=== PATIENT | female | born 1945 | race Caucasian/White ===

== ENCOUNTER 2021-11-12 09:26 | Emergency (ER) | payer OTHER, BC ==
[2021-11-12 09:38] VITALS: BP 173/69; PULSE 64; TEMP 97.2; BMI 19.7
== END 2021-11-12 10:30 | disposition home or self-care (01) ==
LOC: JERFT 09:26
DX: S43.402A Unspecified sprain of left shoulder joint, initial encounter (principal); X50.0XXA Overexertion from strenuous movement or load, initial encounter
CPT/HCPCS: 73030-TC-LT-FY; 99283-25

== ENCOUNTER 2022-03-26 09:47 | Observation (INO) | payer OTHER, BC ==
[2022-03-26 10:15] VITALS: BMI 19.7
[2022-03-26] MEDS ORDERED: ACETAMINOPHEN 1000 MG/100 ML BAG IVPB ONE (10:28)
[2022-03-26] MEDS ORDERED: ACETAMINOPHEN INJECTION 100 ML IVPB ONE (10:41)
[2022-03-26 11:17] LABS: EOS % 0.9 % (0-4.5); HEMATOCRIT 38.7 % (32.4-45.2); HEMOGLOBIN 13.3 GM/dL (10.7-15.3); LYMPH % 34.6 % (8-40); MCH 32.1 pg (25.7-33.7); MCHC 34.3 g/dl (32.0-36.0); MEAN CELL VOLUME 93.8 fl (80-96); MEAN PLT VOLUME 6.6 fl (7.5-11.1); MONO % 13.6 % (3.8-10.2); NEUT % 49.9 % (42.8-82.8); PLATELET COUNT 200 10^3/uL (134-434); RBC 4.13 M/mm3 (3.60-5.2); RDW 14.1 % (11.6-15.6); WHITE BLOOD COUNT 4.4 K/mm3 (4.0-10.0)
[2022-03-26 11:21] LABS: INR 1.03 (0.83-1.09); PROTHROMBIN TIME (PATIENT) 11.9 SEC (9.7-13.0)
[2022-03-26 11:24] LABS: ACTIVATED PTT 25.9 SECONDS (25.2-36.5)
[2022-03-26 11:31] LABS: ALBUMIN 3.5 g/dl (3.4-5.0); BLOOD UREA NITROGEN 22.8 mg/dL (7-18); CALCIUM 9.2 mg/dL (8.5-10.1)
[2022-03-26 11:34] LABS: CREATININE 0.7 mg/dL (0.55-1.3)
[2022-03-26 11:35] LABS: TOT PROT 6.6 g/dl (6.4-8.2)
[2022-03-26 11:36] LABS: BILIRUBIN,TOTAL 0.7 mg/dL (0.2-1)
[2022-03-26 11:39] LABS: N-TERMINAL BNP 188.3 pg/ml (5-450)
[2022-03-26 12:26] LABS: PH,URINE 5.5 (5.0-8.0); URINE APPEARANCE CLEAR; URINE BILIRUBIN NEGATIVE (NEGATIVE); URINE COLOR YELLOW; URINE GLUCOSE (UA) NEGATIVE (NEGATIVE); URINE KETONE NEGATIVE (NEGATIVE); URINE LEUK ESTERASE NEGATIVE (NEGATIVE); URINE NITRITE NEGATIVE (NEGATIVE); URINE PROTEIN NEGATIVE (NEGATIVE); URINE UROBILINOGEN 0.2 mg/dL (0.2-1.0)
[2022-03-26] MEDS ORDERED: VALSARTAN 80 MG TABLET PO ONE (14:06)
[2022-03-26] MEDS ORDERED: VALSARTAN 80 MG TABLET ONE (14:06)
[2022-03-26] MEDS ORDERED: LORazepam 2 MG/ML SDV VIAL IVPUSH ONE (16:46)
[2022-03-26] MEDS: HEPARIN NA (PORCINE) 5,000 UNITS/ML 1ML VIAL SQ SCH (22:19)
[2022-03-27] MEDS: HEPARIN NA (PORCINE) 5,000 UNITS/ML 1ML VIAL SQ SCH ×2 (10:16→21:35)
[2022-03-27] MEDS: VALSARTAN 80 MG TABLET PO SCH (10:16)
[2022-03-27] MEDS: clonazePAM 0.5 MG TABLET PO SCH (10:16)
[2022-03-27] MEDS: ROSUVASTATIN CA 10 MG TABLET PO SCH (10:16)
[2022-03-27] MEDS: ACETAMINOPHEN 325 MG TABLET (FP) PO PRN ×2 (10:55→19:01)
[2022-03-27] MEDS ORDERED: QUEtiapine FUMARATE 25 MG TABLET PO SCH (22:00)
[2022-03-27] MEDS ORDERED: clonazePAM 0.5 MG TABLET PO ONE (23:27)
[2022-03-28] MEDS: VALSARTAN 80 MG TABLET PO SCH (09:05)
[2022-03-28] MEDS: ROSUVASTATIN CA 10 MG TABLET PO SCH (09:05)
[2022-03-28] MEDS: clonazePAM 0.5 MG TABLET PO SCH (09:06)
[2022-03-28] MEDS: HEPARIN NA (PORCINE) 5,000 UNITS/ML 1ML VIAL SQ SCH ×2 (09:06→21:27)
[2022-03-28] MEDS ORDERED: QUEtiapine FUMARATE 25 MG TABLET PO PRN (13:19)
[2022-03-28] MEDS ORDERED: clonazePAM 0.5 MG TABLET PO SCH (21:00)
[2022-03-29] MEDS: VALSARTAN 80 MG TABLET PO SCH (09:57)
[2022-03-29] MEDS: ROSUVASTATIN CA 10 MG TABLET PO SCH (09:57)
[2022-03-29] MEDS: HEPARIN NA (PORCINE) 5,000 UNITS/ML 1ML VIAL SQ SCH ×3 (09:58→21:35)
[2022-03-29] MEDS ORDERED: QUEtiapine FUMARATE 25 MG TABLET PO PRN (15:01)
[2022-03-29] MEDS: ACETAMINOPHEN 325 MG TABLET (FP) PO PRN ×2 (16:48→22:33)
[2022-03-30] MEDS: clonazePAM 0.5 MG TABLET PO PRN ×2 (01:26→20:14)
[2022-03-30] MEDS: ACETAMINOPHEN 325 MG TABLET (FP) PO PRN ×3 (06:58→20:14)
[2022-03-30 07:08] VITALS: RESP 18
[2022-03-30] MEDS ORDERED: clonazePAM 0.5 MG TABLET PO SCH (10:00)
[2022-03-30] MEDS: ROSUVASTATIN CA 10 MG TABLET PO SCH (11:34)
[2022-03-30] MEDS: HEPARIN NA (PORCINE) 5,000 UNITS/ML 1ML VIAL SQ SCH ×3 (11:34→22:44)
[2022-03-30] MEDS: VALSARTAN 80 MG TABLET PO SCH (11:34)
[2022-03-30] MEDS: LIDOCAINE 5% TOPICAL PATCH TP SCH (12:23)
[2022-03-30] MEDS ORDERED: LIDOCAINE PATCH REMOVAL MC SCH (22:00)
[2022-03-31] MEDS: VALSARTAN 80 MG TABLET PO SCH (09:40)
[2022-03-31] MEDS: HEPARIN NA (PORCINE) 5,000 UNITS/ML 1ML VIAL SQ SCH (09:40)
[2022-03-31] MEDS: LIDOCAINE 5% TOPICAL PATCH TP SCH (09:40)
[2022-03-31] MEDS: ROSUVASTATIN CA 10 MG TABLET PO SCH (09:40)
[2022-03-31 10:15] VITALS: BP 160/80; PULSE 60; TEMP 98
== END 2022-03-31 11:05 | disposition home health service (06) ==
LOC: JER 09:47 → JERBED 13:51 → J4W 18:45 → J7W 03-29 13:45
PROVIDERS: ADMIT Internal Medicine; ATTEND Internal Medicine
PROC: 3E033NZ Introduction of Analgesics, Hypnotics, Sedatives into Peripheral Vein, Percutaneous Approach (ICD-10-PCS; principal; 2022-03-26)
DX: R55 Syncope and collapse (principal); R29.6 Repeated falls; I10 Essential (primary) hypertension; F03.90 Unspecified dementia, unspecified severity, without behavioral disturbance, psychotic disturbance, mood disturbance, and anxiety; E78.00 Pure hypercholesterolemia, unspecified; E78.5 Hyperlipidemia, unspecified; F41.9 Anxiety disorder, unspecified
CPT/HCPCS: 0241U-QW; 36415; 70450-TC; 71045-TC-FY; 71101-TC-RT-FY; 72125-TC; 72170-TC-FY; 80053; 81003; 82962; 83880; 84484; 85025; 85610; 85730; 86850; 86900; 86901; 87086; 93005; 93010; 93306-TC; 93880-TC; 96374; 96375; 97116-GP; 97163-GP; 99285-25; G0378; J1644

== ENCOUNTER 2022-04-02 11:12 | Observation (INO) | payer OTHER, BC ==
[2022-04-02 13:34] LABS: CALCIUM 9.2 mg/dL (8.5-10.1)
[2022-04-02 13:35] LABS: ALBUMIN 3.9 g/dl (3.4-5.0)
[2022-04-02 13:38] LABS: CREATININE 0.8 mg/dL (0.55-1.3)
[2022-04-02 13:39] LABS: BILIRUBIN,TOTAL 0.6 mg/dL (0.2-1); TOT PROT 7.2 g/dl (6.4-8.2)
[2022-04-02 13:41] LABS: BASO % 0.8 % (0-2.0); EOS % 0.6 % (0-4.5); HEMATOCRIT 40.5 % (32.4-45.2); HEMOGLOBIN 13.5 GM/dL (10.7-15.3); LYMPH % 29.3 % (8-40); MCHC 33.2 g/dl (32.0-36.0); MEAN CELL VOLUME 93.3 fl (80-96); MEAN PLT VOLUME 7.5 fl (7.5-11.1); MONO % 12.4 % (3.8-10.2); NEUT % 56.9 % (42.8-82.8); PLATELET COUNT 197 10^3/uL (134-434); RBC 4.34 M/mm3 (3.60-5.2); RDW 13.9 % (11.6-15.6); WHITE BLOOD COUNT 6.5 K/mm3 (4.0-10.0)
[2022-04-02] MEDS: ACETAMINOPHEN 325 MG TABLET (FP) PO PRN (18:20)
[2022-04-02] MEDS: LIDOCAINE PATCH REMOVAL MC SCH (21:13)
[2022-04-02] MEDS: HEPARIN NA (PORCINE) 5,000 UNITS/ML 1ML VIAL SQ SCH (21:13)
[2022-04-02] MEDS: clonazePAM 0.5 MG TABLET PO SCH (21:13)
[2022-04-03] MEDS: LIDOCAINE 5% TOPICAL PATCH TP SCH (10:26)
[2022-04-03] MEDS: ROSUVASTATIN CA 10 MG TABLET PO SCH ×2 (10:26→11:35)
[2022-04-03] MEDS: VALSARTAN 80 MG TABLET PO SCH ×2 (10:26→11:35)
[2022-04-03] MEDS: clonazePAM 0.5 MG TABLET PO SCH (10:26)
[2022-04-03] MEDS: HEPARIN NA (PORCINE) 5,000 UNITS/ML 1ML VIAL SQ SCH ×2 (10:26→21:44)
[2022-04-03] MEDS: clonazePAM 0.25 MG ODT TABLETS SL PRN (21:44)
[2022-04-03] MEDS: LIDOCAINE PATCH REMOVAL MC SCH (21:45)
[2022-04-04] MEDS: clonazePAM 0.25 MG ODT TABLETS SL PRN ×2 (10:31→21:36)
[2022-04-04] MEDS: LIDOCAINE 5% TOPICAL PATCH TP SCH (10:31)
[2022-04-04] MEDS: VALSARTAN 80 MG TABLET PO SCH (10:31)
[2022-04-04] MEDS: ROSUVASTATIN CA 10 MG TABLET PO SCH (10:31)
[2022-04-04] MEDS: HEPARIN NA (PORCINE) 5,000 UNITS/ML 1ML VIAL SQ SCH ×3 (10:42→21:14)
[2022-04-04 14:39] VITALS: BMI 18.7
[2022-04-04 17:58] LABS: EPI CELLS 7 /uL (0-25.1); HYALINE CASTS 0 /uL (0-3.1); URINE APPEARANCE CLOUDY; URINE BACTERIA 23 /uL (0-1359); URINE BILIRUBIN NEGATIVE (NEGATIVE); URINE COLOR DK YELLOW; URINE GLUCOSE (UA) NEGATIVE (NEGATIVE); URINE KETONE TRACE (NEGATIVE); URINE LEUK ESTERASE 1+ (NEGATIVE); URINE NITRITE NEGATIVE (NEGATIVE); URINE PROTEIN NEGATIVE (NEGATIVE); URINE RBC 5 /uL (0-23.9); URINE WBC 58 /uL (0-25.8)
[2022-04-04] MEDS: clonazePAM 0.25 MG ODT TABLETS SL SCH (20:09)
[2022-04-04] MEDS: LIDOCAINE PATCH REMOVAL MC SCH ×2 (20:10→21:14)
[2022-04-05] MEDS: HEPARIN NA (PORCINE) 5,000 UNITS/ML 1ML VIAL SQ SCH ×2 (09:43→21:26)
[2022-04-05] MEDS: ROSUVASTATIN CA 10 MG TABLET PO SCH (09:43)
[2022-04-05] MEDS: LIDOCAINE 5% TOPICAL PATCH TP SCH (09:43)
[2022-04-05] MEDS: VALSARTAN 80 MG TABLET PO SCH (09:43)
[2022-04-05] MEDS: ACETAMINOPHEN 325 MG TABLET (FP) PO PRN (11:21)
[2022-04-05] MEDS: clonazePAM 0.25 MG ODT TABLETS SL SCH (21:26)
[2022-04-05] MEDS: LIDOCAINE PATCH REMOVAL MC SCH (21:26)
[2022-04-06] MEDS: LIDOCAINE 5% TOPICAL PATCH TP SCH (12:02)
[2022-04-06] MEDS: VALSARTAN 80 MG TABLET PO SCH (12:03)
[2022-04-06] MEDS: HEPARIN NA (PORCINE) 5,000 UNITS/ML 1ML VIAL SQ SCH ×2 (12:03→21:02)
[2022-04-06] MEDS: ROSUVASTATIN CA 10 MG TABLET PO SCH (12:03)
[2022-04-06] MEDS: clonazePAM 0.25 MG ODT TABLETS SL SCH (20:46)
[2022-04-06] MEDS: LIDOCAINE PATCH REMOVAL MC SCH (21:15)
[2022-04-07 02:28] VITALS: RESP 18
[2022-04-07 04:48] VITALS: TEMP 97.8
[2022-04-07] MEDS: HEPARIN NA (PORCINE) 5,000 UNITS/ML 1ML VIAL SQ SCH ×2 (09:09→09:20)
[2022-04-07] MEDS: ROSUVASTATIN CA 10 MG TABLET PO SCH (09:09)
[2022-04-07] MEDS: VALSARTAN 80 MG TABLET PO SCH (09:09)
[2022-04-07] MEDS: LIDOCAINE 5% TOPICAL PATCH TP SCH (09:10)
[2022-04-07 11:09] VITALS: BP 140/73; PULSE 68
== END 2022-04-07 11:50 ==
LOC: JER 11:12 → JERBED 14:20 → INTOOBSV 14:20 → UNDOADMOB 14:20 → JERBED 16:39 → J6S 17:50
PROVIDERS: ADMIT Internal Medicine; ATTEND Internal Medicine
DX: F03.90 Unspecified dementia, unspecified severity, without behavioral disturbance, psychotic disturbance, mood disturbance, and anxiety (principal); R29.6 Repeated falls; E78.00 Pure hypercholesterolemia, unspecified; Z90.79 Acquired absence of other genital organ(s); I10 Essential (primary) hypertension; W18.39XA Other fall on same level, initial encounter; Y93.89 Activity, other specified; Y92.89 Other specified places as the place of occurrence of the external cause; Z88.0 Allergy status to penicillin
CPT/HCPCS: 36415; 70450-TC; 71045-TC-FY; 72125-TC; 80053; 81003; 84484; 85025; 87086; 87186; 93005; 93010; 97116-GP; 99285-25; C9803-CS; G0378; J1644; U0003; U0005

== ENCOUNTER 2022-12-29 19:43 | Inpatient (IN) | payer OTHER, BC ==
[2022-12-29 21:12] LABS: BASO % 0.5 % (0-2.0); EOS % 1.1 % (0-4.5); HEMATOCRIT 34.3 % (32.4-45.2); HEMOGLOBIN 11.4 GM/dL (10.7-15.3); LYMPH % 29.1 % (8-40); MCH 30.8 pg (25.7-33.7); MCHC 33.2 g/dl (32.0-36.0); MEAN CELL VOLUME 92.6 fl (80-96); MEAN PLT VOLUME 6.7 fl (7.5-11.1); MONO % 11.9 % (3.8-10.2); NEUT % 57.4 % (42.8-82.8); PLATELET COUNT 233 10^3/uL (134-434); RDW 13.5 % (11.6-15.6); WHITE BLOOD COUNT 7.2 K/mm3 (4.0-10.0)
[2022-12-29 21:24] LABS: INR 1.05 (0.83-1.09); PROTHROMBIN TIME (PATIENT) 12.2 SEC (9.7-13.0)
[2022-12-29 21:27] LABS: ACTIVATED PTT 25.1 SECONDS (25.2-36.5)
[2022-12-29 21:31] LABS: POTASSIUM 3.9 mmol/L (3.5-5.1)
[2022-12-29 21:32] LABS: CALCIUM 8.9 mg/dL (8.5-10.1)
[2022-12-29 21:33] LABS: ALBUMIN 3.3 g/dl (3.4-5.0); BLOOD UREA NITROGEN 29.2 mg/dL (7-18)
[2022-12-29] MEDS ORDERED: MIRTAZAPINE 15 MG TABLET (FP) PO ONE (21:33)
[2022-12-29] MEDS ORDERED: MIRTAZAPINE 15 MG TABLET (FP) ONE (21:34)
[2022-12-29 21:36] LABS: CREATININE 0.7 mg/dL (0.55-1.3)
[2022-12-29 21:38] LABS: TOT PROT 6.8 g/dl (6.4-8.2)
[2022-12-29 21:39] LABS: BILIRUBIN,TOTAL 0.7 mg/dL (0.2-1)
[2022-12-29] MEDS ORDERED: CITALOPRAM HYDROBROMIDE 10 MG TABLET PO ONE (22:00)
[2022-12-29] MEDS ORDERED: MELATONIN 5 MG TABLETS PO ONE (22:00)
[2022-12-29] MEDS ORDERED: CITALOPRAM HYDROBROMIDE 10 MG TABLET ONE (22:07)
[2022-12-29] MEDS ORDERED: MELATONIN 1 MG TABLET PO ONE (22:15)
[2022-12-29 22:47] LABS: PH,URINE 5.5 (5.0-8.0); URINE APPEARANCE CLEAR; URINE BILIRUBIN NEGATIVE (NEGATIVE); URINE COLOR YELLOW; URINE GLUCOSE (UA) NEGATIVE (NEGATIVE); URINE KETONE NEGATIVE (NEGATIVE); URINE LEUK ESTERASE NEGATIVE (NEGATIVE); URINE NITRITE NEGATIVE (NEGATIVE); URINE PROTEIN NEGATIVE (NEGATIVE); URINE UROBILINOGEN 0.2 mg/dL (0.2-1.0)
[2022-12-30] MEDS ORDERED: CITALOPRAM HYDROBROMIDE 10 MG TABLET ONE ×2 (09:24→19:52)
[2022-12-30] MEDS ORDERED: MIRTAZAPINE 15 MG TABLET (FP) ONE ×2 (09:24→19:52)
[2022-12-30] MEDS: MIRTAZAPINE 15 MG TABLET (FP) PO SCH (09:39)
[2022-12-30] MEDS: CITALOPRAM HYDROBROMIDE 10 MG TABLET PO SCH (09:39)
[2022-12-30] MEDS ORDERED: CITALOPRAM HYDROBROMIDE 10 MG TABLET PO ONE (19:01)
[2022-12-30] MEDS ORDERED: ACETAMINOPHEN 500 MG TABLET (FP) PO ONE (19:02)
[2022-12-30] MEDS ORDERED: MIRTAZAPINE 15 MG TABLET (FP) PO ONE (19:02)
[2022-12-30] MEDS ORDERED: ACETAMINOPHEN 325 MG TABLET (FP) ONE (19:52)
[2022-12-30] MEDS: ROSUVASTATIN CA 10 MG TABLET PO SCH (21:20)
[2022-12-30] MEDS: MELATONIN 1 MG TABLET PO PRN (21:20)
[2022-12-31] MEDS: MIRTAZAPINE 15 MG TABLET (FP) PO SCH (10:11)
[2022-12-31] MEDS: CITALOPRAM HYDROBROMIDE 10 MG TABLET PO SCH (10:11)
[2022-12-31] MEDS: ENOXAPARIN NA (PORCINE) 40 MG/0.4 ML DISP.SYRIN SQ SCH (10:11)
[2022-12-31] MEDS ORDERED: clonazePAM 0.5 MG TABLET PO PRN (12:16)
[2022-12-31] MEDS ORDERED: HALOPERIDOL LACTATE 5 MG/ML IM PRN (12:19)
[2022-12-31] MEDS: ROSUVASTATIN CA 10 MG TABLET PO SCH (23:50)
[2023-01-01] MEDS: MIRTAZAPINE 15 MG TABLET (FP) PO SCH (10:20)
[2023-01-01] MEDS: ENOXAPARIN NA (PORCINE) 40 MG/0.4 ML DISP.SYRIN SQ SCH (10:20)
[2023-01-01] MEDS: CITALOPRAM HYDROBROMIDE 10 MG TABLET PO SCH (10:20)
[2023-01-01] MEDS: LOSARTAN POTASSIUM 50 MG TABLET PO SCH (10:20)
[2023-01-01] MEDS ORDERED: ACETAMINOPHEN 500 MG TABLET (FP) PO PRN (15:22)
[2023-01-01] MEDS: MELATONIN 1 MG TABLET PO PRN (21:28)
[2023-01-01] MEDS: ROSUVASTATIN CA 10 MG TABLET PO SCH (21:28)
[2023-01-02] MEDS: ENOXAPARIN NA (PORCINE) 40 MG/0.4 ML DISP.SYRIN SQ SCH (10:11)
[2023-01-02] MEDS: MIRTAZAPINE 15 MG TABLET (FP) PO SCH (10:11)
[2023-01-02] MEDS: LOSARTAN POTASSIUM 50 MG TABLET PO SCH (10:11)
[2023-01-02] MEDS: CITALOPRAM HYDROBROMIDE 10 MG TABLET PO SCH (10:11)
[2023-01-02] MEDS: ROSUVASTATIN CA 10 MG TABLET PO SCH (21:26)
[2023-01-02] MEDS: MELATONIN 1 MG TABLET PO PRN (21:47)
[2023-01-03] MEDS: ENOXAPARIN NA (PORCINE) 40 MG/0.4 ML DISP.SYRIN SQ SCH (09:13)
[2023-01-03] MEDS: MIRTAZAPINE 15 MG TABLET (FP) PO SCH (09:14)
[2023-01-03] MEDS: LOSARTAN POTASSIUM 50 MG TABLET PO SCH (09:14)
[2023-01-03] MEDS: CITALOPRAM HYDROBROMIDE 10 MG TABLET PO SCH (09:14)
[2023-01-03] MEDS ORDERED: ACETAMINOPHEN 500 MG TABLET (FP) PO PRN (11:21)
[2023-01-03] MEDS ORDERED: clonazePAM 0.5 MG TABLET PO PRN (11:21)
[2023-01-03] MEDS ORDERED: HALOPERIDOL LACTATE 5 MG/ML IM PRN (11:21)
[2023-01-03] MEDS ORDERED: MELATONIN 1 MG TABLET PO PRN (11:21)
[2023-01-03] MEDS: POLYETHYLENE GLYCOL (HEALTHYLAX) 3350 17 GM PACKET PO SCH (15:55)
[2023-01-03] MEDS: ROSUVASTATIN CA 10 MG TABLET PO SCH (23:01)
[2023-01-04] MEDS: POLYETHYLENE GLYCOL (HEALTHYLAX) 3350 17 GM PACKET PO SCH (09:41)
[2023-01-04] MEDS: LOSARTAN POTASSIUM 50 MG TABLET PO SCH (09:41)
[2023-01-04] MEDS: CITALOPRAM HYDROBROMIDE 10 MG TABLET PO SCH (09:41)
[2023-01-04] MEDS: ENOXAPARIN NA (PORCINE) 40 MG/0.4 ML DISP.SYRIN SQ SCH (09:42)
[2023-01-04] MEDS: ROSUVASTATIN CA 10 MG TABLET PO SCH (22:05)
[2023-01-04] MEDS: MIRTAZAPINE 15 MG TABLET (FP) PO SCH (22:05)
[2023-01-05] MEDS: POLYETHYLENE GLYCOL (HEALTHYLAX) 3350 17 GM PACKET PO SCH (11:46)
[2023-01-05] MEDS: LOSARTAN POTASSIUM 50 MG TABLET PO SCH (11:46)
[2023-01-05] MEDS: ENOXAPARIN NA (PORCINE) 40 MG/0.4 ML DISP.SYRIN SQ SCH (11:46)
[2023-01-05] MEDS: CITALOPRAM HYDROBROMIDE 10 MG TABLET PO SCH (11:48)
[2023-01-05 13:28] VITALS: BMI 23.1
[2023-01-05] MEDS: MIRTAZAPINE 15 MG TABLET (FP) PO SCH (22:26)
[2023-01-05] MEDS: ROSUVASTATIN CA 10 MG TABLET PO SCH (22:26)
[2023-01-06] MEDS: CITALOPRAM HYDROBROMIDE 10 MG TABLET PO SCH (09:51)
[2023-01-06] MEDS: POLYETHYLENE GLYCOL (HEALTHYLAX) 3350 17 GM PACKET PO SCH (09:52)
[2023-01-06] MEDS: LOSARTAN POTASSIUM 50 MG TABLET PO SCH (09:52)
[2023-01-06] MEDS: ENOXAPARIN NA (PORCINE) 40 MG/0.4 ML DISP.SYRIN SQ SCH (09:53)
[2023-01-06 12:58] VITALS: BP 123/70; PULSE 59; RESP 20; TEMP 97.7
== END 2023-01-06 12:26 | DRG 69 ==
LOC: JER 19:43 → JERBED 22:50 → J4W 12-30 20:32 → OBSVTOIN 12-31 10:46 → J7W 01-03 11:19
PROVIDERS: ADMIT Internal Medicine; ATTEND Internal Medicine
DX: G45.9 Transient cerebral ischemic attack, unspecified (principal); F03.90 Unspecified dementia, unspecified severity, without behavioral disturbance, psychotic disturbance, mood disturbance, and anxiety; I10 Essential (primary) hypertension; E78.5 Hyperlipidemia, unspecified; F41.9 Anxiety disorder, unspecified; R55 Syncope and collapse; R29.6 Repeated falls
CPT/HCPCS: 36415; 70450-TC; 71045-TC-FY; 80053; 80061; 81003; 82550; 83036; 84484; 85025; 85610; 85730; 86850; 86900; 86901; 87086; 87635; 93005; 93010; 93880-TC; 97116-GP; 97162-GP; 99285-25; G0378